=== PATIENT | female | born 1955 | race Caucasian/White ===

== ENCOUNTER 2018-01-19 08:18 | Outpatient (CLI) | payer OTHER ==
--- NOTE | 2018-01-19 13:25 | MMO ---
BILATERAL SCREENING MAMMOGRAM: Date: 01/19/18 COMPARISON: 10/21/16, 06/23/15, and 06/20/14. HISTORY: Screening mammography. FINDINGS: This patient's mammogram was interpreted with the assistance of computer-aided detection. Scattered fibroglandular densities are present. There is no dominant mass or architectural distortion . No concerning calcifications are noted. IMPRESSION: BIRADS 1: Negative Annual screening mammography recommended. POS: [facility]
== END 2018-01-19 08:19 | disposition home or self-care (01) ==
LOC: SCSMAMMO 08:18
PROVIDERS: ATTEND Family Medicine
DX: Z12.31 Encounter for screening mammogram for malignant neoplasm of breast (principal)
CPT/HCPCS: 77067

== ENCOUNTER 2018-04-13 09:54 | Outpatient (CLI) | payer OTHER ==
--- NOTE | 2018-04-13 12:11 | BD ---
DEXA BONE SCAN: HISTORY: Age-related osteoporosis. COMPARISON: None available. TECHNIQUE: A DEXA bone scan is performed using the hologic bone mineral density unit. FINDINGS: LUMBAR SPINE BMD (g/cm2) T-SCORE Z-SCORE L1 0.85 -1.3 0.1 L2 1.03 -0.0 1.5 L3 0.98 -1.0 0.6 L4 0.83 -2.1 -0.1 COMPOSITE 0.92 -1.2 0.4 This suggests osteopenia. LEFT HIP BMD T-SCORE Z-SCORE FEMORAL NECK 0.70 -1.4 0.0 COMPOSITE 0.89 -0.4 0.7 Findings compatible with osteopenia. The patient has the following FRAX scores: Major osteoporotic fracture risk 8.0% Hip fracture risk 0.6% IMPRESSION: Osteopenia: The patient has a mildly increased risk for osteoporotic fractures. POS: [facility]
== END 2018-04-13 09:55 | disposition home or self-care (01) ==
LOC: BICMAMMO 09:54
PROVIDERS: ATTEND Internal Medicine Rheumatology
DX: M81.0 Age-related osteoporosis without current pathological fracture (principal); M85.89 Other specified disorders of bone density and structure, multiple sites
CPT/HCPCS: 77080

== ENCOUNTER 2024-02-17 12:12 | Outpatient (CLI) | payer BC | END 2024-02-17 12:13 | disposition home or self-care (01) | LOC: BICMRI 12:12 | PROVIDERS: ATTEND Family Medicine | DX: M54.31 Sciatica, right side (principal); R93.7 Abnormal findings on diagnostic imaging of other parts of musculoskeletal system; M47.816 Spondylosis without myelopathy or radiculopathy, lumbar region; M51.369 Other intervertebral disc degeneration, lumbar region without mention of lumbar back pain or lower extremity pain | CPT/HCPCS: 72148 ==

== ENCOUNTER 2024-09-15 08:46 | Outpatient (CLI) | payer BC ==
[2024-09-15 11:53] LABS: #Basophils 0.08 10x3/uL (0.0-0.2); #Eosinophils 0.21 10x3/uL (0.0-0.7); #Monocytes 0.65 10x3/uL (0.11-0.59); #Neutrophils 6.55 10x3/uL (1.40-6.50); %Basophils 0.9 % (0.0-1.0); %Eosinophils 2.4 % (0.0-10.0); %Lymphocytes 13.8 % (21.0-51.0); %Monocytes 7.4 % (0.0-10.0); %Neutrophils 74.9 % (42.0-75.0); Hematocrit 35.7 % (36.0-47.0); Hemoglobin 11.7 g/dL (12.0-16.0); Mean Corpuscular Hemoglobin 34.9 pg (27.0-31.0); Mean Corpuscular Volume 106.6 fL (78.0-98.0); Platelet Count 355 10x3/uL (130-400); Red Blood Cell (RBC) Count 3.35 mill/uL (4.20-5.40); White Blood Cell (WBC) Count 8.75 10x3/uL (4.8-10.8)
[2024-09-15 12:07] LABS: INR-International Normal Ratio 1.0; PTT 26.8 sec (22.9-36.1); Prothrombin Time 13.1 sec (12.0-14.7)
[2024-09-15 12:46] LABS: Anion Gap 14 mmol/L (10-20); BUN (Urea Nitrogen) 18 mg/dL (9.8-20.1); Calc. Creatinine Clearance 0 mL/min (70-130); Calcium 9.2 mg/dL (7.8-10.44); Carbon Dioxide 27 mmol/L (23-31); Chloride 98 mmol/L (98-107); Glucose 82 mg/dL (80-115); Potassium 4.5 mmol/L (3.5-5.1); Sodium 134 mmol/L (136-145)
== END 2024-09-15 08:47 | disposition home or self-care (01) ==
LOC: LABBT 08:46
PROVIDERS: ATTEND Surgery
DX: Z01.818 Encounter for other preprocedural examination (principal); M51.16 Intervertebral disc disorders with radiculopathy, lumbar region; M48.062 Spinal stenosis, lumbar region with neurogenic claudication
CPT/HCPCS: 80048; 85025; 85610; 85730; 93005; 93010

== ENCOUNTER 2024-09-20 08:29 | Outpatient (CLI) | payer BC | END 2024-09-20 08:30 | disposition home or self-care (01) | LOC: BICMAMMO 08:29 | PROVIDERS: ATTEND Physician Assistant | DX: M81.0 Age-related osteoporosis without current pathological fracture (principal); M85.89 Other specified disorders of bone density and structure, multiple sites | CPT/HCPCS: 77080 ==

== ENCOUNTER 2024-09-21 07:44 | Observation (INO) | payer BC ==
[2024-09-15 09:14] VITALS: BMI 26.5
[2024-09-21] MEDS ORDERED: PROPOFOL 20 ML ONE (08:46)
[2024-09-21] MEDS ORDERED: fentaNYL PF 100 MCG/2 ML SYRINGE ONE (08:46)
[2024-09-21] MEDS ORDERED: Lidocaine 1% PF 5 ML VIAL ONE (08:46)
[2024-09-21] MEDS ORDERED: Rocuronium Bromide 10 MG/ML (10ML VIAL) ONE (08:46)
[2024-09-21] MEDS ORDERED: Thrombin 5000 UNITS/5 ML VIAL ONE (09:05)
[2024-09-21] MEDS ORDERED: CEFAZOLIN 2 GM VIAL ONE (09:32)
[2024-09-21] MEDS ORDERED: PHENYLEPHRINE-NS 100 MCG/ML 10 ML SYRINGE ONE (11:47)
[2024-09-21] MEDS ORDERED: HYDROmorphone 2 MG/ML VIAL ONE (12:41)
[2024-09-21] MEDS ORDERED: PACU-Morphine 4MG/ML VIAL SLOW IVP PRN (12:47)
[2024-09-21] MEDS ORDERED: HYDROmorphone 0.5 MG/0.5 ML SYR SLOW IVP PRN (12:47)
[2024-09-21] MEDS ORDERED: Ketorolac Tromethamine 30 MG (1 mL) VIAL ONE (12:53)
[2024-09-21] MEDS ORDERED: SUGAMMADEX SODIUM 200 MG/2 ML VIAL ONE (13:06)
[2024-09-21] MEDS ORDERED: diphenhydrAMINE 25 MG CAP PO PRN (13:28)
[2024-09-21] MEDS ORDERED: Milk Of Magnesia 30 ML UDCUP PO PRN (13:28)
[2024-09-21] MEDS ORDERED: Acetaminophen/Codeine 30-300mg Tablet PO PRN (13:28)
[2024-09-21] MEDS ORDERED: HYDROcodone/Acetaminophen 7.5/325 mg Tablet PO PRN (13:28)
[2024-09-21] MEDS ORDERED: hydrALAZINE 20 MG/ML VIAL SLOW IVP PRN (13:31)
[2024-09-21] MEDS ORDERED: Benzocaine/Menthol 1 LOZ LOZ PO PRN (13:31)
[2024-09-21] MEDS ORDERED: Prochlorperazine 10 MG/2 ML VIAL SLOW IVP PRN (13:31)
[2024-09-21] MEDS ORDERED: HYDROmorphone 0.5 MG/0.5 ML SYRINGE ONE (14:26)
[2024-09-21] MEDS ORDERED: Artificial Tear Ophth Sol 15 ML BOT EA EYE PRN (14:56)
[2024-09-21] MEDS: Scopolamine 1 mg/72 hour Patch TD SCH (18:10)
[2024-09-21] MEDS: Acetaminophen 325 MG TAB PO PRN (20:35)
[2024-09-21] MEDS: Calcium Carbonate 600 MG + Vit D TAB PO SCH (20:35)
[2024-09-21] MEDS ORDERED: Ergocalciferol 1.25 MG(50,000 UNITS) CAP PO SCH (21:00)
[2024-09-22 11:02] VITALS: BP 124/72; TEMP 98
== END 2024-09-22 13:10 | disposition home or self-care (01) ==
LOC: SDC 07:44 → SURG B 13:20
PROVIDERS: ADMIT Surgery; ATTEND Surgery
PROC: 0QB00ZZ Excision of Lumbar Vertebra, Open Approach (ICD-10-PCS; principal; 2024-09-21)
DX: M48.062 Spinal stenosis, lumbar region with neurogenic claudication (principal); M51.16 Intervertebral disc disorders with radiculopathy, lumbar region
CPT/HCPCS: J1100; J1171; J1885; J2704; J3373